=== PATIENT | female | born 1985 | race Two or more races ===

== ENCOUNTER → 2023-05-10 | Outpatient (CLI) | payer BC | END | disposition home or self-care (01) | LOC: LAB 08:52 | PROVIDERS: ATTEND Obstetrics & Gynecology | DX: O99.810 Abnormal glucose complicating pregnancy (principal); Z3A.00 Weeks of gestation of pregnancy not specified | CPT/HCPCS: 82951 ==

== ENCOUNTER 2023-08-21 07:53 | Observation (INO) | payer BC ==
[~2023-08-21] VITALS: Ht 172.7 cm; Wt 127.9 kg
== END 2023-08-21 09:10 | disposition home or self-care (01) ==
LOC: LDRP 07:53 → UNDOADMOB 07:53 → LDRP 08:04 → UNDODISOB 09:10
PROVIDERS: ADMIT Obstetrics & Gynecology; ATTEND Obstetrics & Gynecology
DX: O24.419 Gestational diabetes mellitus in pregnancy, unspecified control (principal); Z3A.33 33 weeks gestation of pregnancy; Z79.899 Other long term (current) drug therapy
CPT/HCPCS: 59025; 76818; 81002; 82948; 82962; 94760; G0378

== ENCOUNTER 2023-08-28 08:24 | Observation (INO) | payer BC | END 2023-08-28 10:30 | disposition home or self-care (01) | LOC: LDRP 08:24 → UNDOADMOB 08:24 → LDRP 08:44 → UNDODISOB 10:30 | PROVIDERS: ADMIT Obstetrics & Gynecology; ATTEND Obstetrics & Gynecology | DX: O24.410 Gestational diabetes mellitus in pregnancy, diet controlled (principal); Z3A.34 34 weeks gestation of pregnancy | CPT/HCPCS: 59025; 76818; 81002; 82948; 94760; G0378 ==

== ENCOUNTER 2023-09-03 08:12 | Observation (INO) | payer BC ==
[2023-09-03] MEDS ORDERED: PREN-96 PO (10:23)
== END 2023-09-03 10:56 | disposition home or self-care (01) ==
LOC: LDRP 08:25 → UNDOADMOB 08:25 → LDRP 08:43 → UNDODISOB 10:56
PROVIDERS: ADMIT Obstetrics & Gynecology; ATTEND Obstetrics & Gynecology
DX: O24.419 Gestational diabetes mellitus in pregnancy, unspecified control (principal); O99.283 Endocrine, nutritional and metabolic diseases complicating pregnancy, third trimester; E03.9 Hypothyroidism, unspecified; Z3A.34 34 weeks gestation of pregnancy
CPT/HCPCS: 59025; 76818; 81002; 82948; G0378

== ENCOUNTER → 2023-09-10 | Outpatient (CLI) | payer BC ==
[~2023-09-10] MED LIST: CEPH250C PO; PREN-96 PO
[2023-09-10 07:23] LABS: Basophils # (auto) 0 10 ^3/uL (0-0.2); Basophils % (auto) 0.3 % (0.0-2.0); Eosinophils # (auto) 0.2 10 ^3/uL (0-0.8); Eosinophils % (auto) 2.1 % (0.0-7.0); Hematocrit 35.9 % (36.0-46.0); Lymphocytes # (auto) 2.3 10 ^3/uL (0.4-5.4); Lymphocytes % (auto) 24.4 % (10.0-50.0); Mean Corpuscular Hemoglobin 27.4 pg (28.0-32.0); Mean Corpuscular Hgb Conc. 33.5 g/dL (32.0-36.0); Mean Corpuscular Volume 81.9 fL (80.0-100.0); Monocytes # (auto) 0.6 10 ^3/uL (0-1.3); Monocytes % (auto) 6.7 % (0.0-12.0); Neutrophils # (auto) 6.2 10 ^3/uL (1.6-8.6); Neutrophils % (auto) 66.5 % (37.0-80.0); Nucleated Red Blood Cells % 0.1 %; Red Blood Cells 4.39 10^6/uL (4.0-5.20); Red Cell Distribution Width 15.3 % (11.8-14.3); White Blood Cell 9.3 10^3/uL (4.4-10.8)
[2023-09-11 07:07] LABS: RPR Non Reactive (Non Reactive)
[2023-09-11 22:06] LABS: Chlamydia Trachomatis, NAA Negative (Negative); Neisseria gonorrhoeae, NAA Negative (Negative)
== END | disposition home or self-care (01) ==
LOC: LAB 07:12
PROVIDERS: ATTEND Obstetrics & Gynecology
DX: Z34.80 Encounter for supervision of other normal pregnancy, unspecified trimester (principal); Z3A.00 Weeks of gestation of pregnancy not specified
CPT/HCPCS: 36415; 83036; 85025; 86592

== ENCOUNTER 2023-09-11 08:33 | Observation (INO) | payer BC ==
[~2023-09-11 08:33] MED LIST changes: -CEPH250C PO; -FURO1TAB33 PO; -HYDR-4902 PO; -IBUP-1455 PO; -LEVO25TA6 PO; -POTA20IN4 PO
[2023-09-11] MEDS ORDERED: CEPH250C PO ×2 (10:02)
== END 2023-09-11 10:11 | disposition home or self-care (01) ==
LOC: UNDOADMOB 08:33 → LDRP 08:33
PROVIDERS: ADMIT Obstetrics & Gynecology; ATTEND Obstetrics & Gynecology
DX: O24.419 Gestational diabetes mellitus in pregnancy, unspecified control (principal); Z3A.36 36 weeks gestation of pregnancy
CPT/HCPCS: 59025; 76818; 81002; 82948; 82962; 94760; G0378

== ENCOUNTER → 2023-09-11 | Outpatient (CLI) | payer BC ==
[~2023-09-11] VITALS: Ht 172.7 cm; Wt 121.6 kg
[~2023-09-11] MED LIST changes: +FURO1TAB33 PO; +HYDR-4902 PO; +IBUP-1455 PO; +LEVO25TA6 PO; +POTA20IN4 PO
== END | disposition home or self-care (01) ==
LOC: LAB 14:50
PROVIDERS: ATTEND Obstetrics & Gynecology
DX: Z34.03 Encounter for supervision of normal first pregnancy, third trimester (principal); Z3A.35 35 weeks gestation of pregnancy
CPT/HCPCS: 87081

== ENCOUNTER 2023-09-18 08:30 | Observation (INO) | payer BC ==
[~2023-09-18] VITALS: Ht 172.7 cm; Wt 130.6 kg
[~2023-09-18 08:30] MED LIST changes: +CEPH250C PO
== END 2023-09-18 09:53 | disposition home or self-care (01) ==
LOC: LDRP 08:30 → UNDOADMOB 08:30 → LDRP 08:46
PROVIDERS: ADMIT Obstetrics & Gynecology; ATTEND Obstetrics & Gynecology
DX: O24.419 Gestational diabetes mellitus in pregnancy, unspecified control (principal); Z3A.37 37 weeks gestation of pregnancy
CPT/HCPCS: 59025; 76818; 81002; 82948; 82962; 94760; G0378

== ENCOUNTER 2023-09-25 09:00 | Observation (INO) | payer BC ==
[~2023-09-25] VITALS: Ht 172.7 cm; Wt 131.5 kg
[~2023-09-25 09:00] MED LIST changes: -CEPH250C PO
== END 2023-09-25 11:19 | disposition home or self-care (01) ==
LOC: UNDOADMOB 09:00 → LDRP 09:00 → UNDODISOB 11:19
PROVIDERS: ADMIT Obstetrics & Gynecology; ATTEND Obstetrics & Gynecology
DX: O24.419 Gestational diabetes mellitus in pregnancy, unspecified control (principal); Z3A.38 38 weeks gestation of pregnancy
CPT/HCPCS: 59025; 76818; 81002; 82948; 82962; 94760; G0378

== ENCOUNTER 2023-09-27 08:59 | Observation (INO) | payer BC ==
[2023-09-27] MEDS ORDERED: LEVO25TA6 PO (15:02)
== END 2023-09-27 17:00 | disposition home or self-care (01) ==
LOC: LDRP 14:34 → UNDOADMOB 14:34 → LDRP 14:39
PROVIDERS: ADMIT Obstetrics & Gynecology; ATTEND Obstetrics & Gynecology
DX: O24.419 Gestational diabetes mellitus in pregnancy, unspecified control (principal); O34.63 Maternal care for abnormality of vagina, third trimester; N89.8 Other specified noninflammatory disorders of vagina; Z3A.38 38 weeks gestation of pregnancy
CPT/HCPCS: 59025; 76818; 81002; 82948; 82962; 94760; G0378

== ENCOUNTER 2023-10-03 20:56 | Inpatient (IN) | payer BC ==
[~2023-10-03] VITALS: Ht 170.2 cm; Wt 99.8 kg
[~2023-10-03 20:56] MED LIST changes: +LEVO25TA6 PO
[2023-10-03] MEDS ORDERED: LIDOCAINE 2%HCL (LOCAL ANESTH.) INJ 20ML MDV IJ PRN ×2 (21:15→22:00)
[2023-10-03] MEDS ORDERED: BUTORPHANOL TARTRATE 2 MG/1 ML VIAL IV PRN ×2 (21:15)
[2023-10-03] MEDS: miSOPROStol 50 MCG per PRE-CUT 1/2 TAB PO PRN (22:06)
[2023-10-03 22:15] LABS: Urine Bacteria FEW /hpf (None Seen); Urine Blood 1+ /uL (Negative); Urine Clarity Turbid (Clear); Urine Color Yellow (Yellow); Urine Mucus FEW (None Seen); Urine Protein, UAD TRACE (Negative); Urine Specific Gravity 1.027 (1.001-1.035); Urine Urobilinogen Normal (Negative); Urine WBC 5 /hpf (0 - 5)
[2023-10-03] MEDS: LACTATED RINGER'S 1,000 ML IV SCH (22:26)
[2023-10-03 22:31] LABS: Amphetamine Screen, Urine Neg (NEGATIVE); Barbiturate Scree,Urine Neg (NEGATIVE); Benzodiazephine Screen, Urine Neg (NEGATIVE); Cannabinoid Screen, Urine Neg (NEGATIVE); Opiate Scree,Urine Neg (NEGATIVE); Phencyclidine Screen, Urine Neg (NEGATIVE)
[2023-10-03 22:33] LABS: Albumin 3.4 g/dL (3.2-4.8); Alkaline Phosphatase 175 U/L (46-116); Anion Gap 7 (5-15); Aspartate Aminotransferase < 8 U/L (13-40); BUN/Creatinine Ratio 11.9 (10.0-20.0); Bilirubin, Total 0.3 mg/dL (0.2-1.0); Blood Urea Nitrogen 7 mg/dL (9-23); Calcium 9.6 mg/dL (8.5-10.1); Carbon Dioxide 21 mmol/L (20-30); Chloride 109 mmol/L (98-107); Glucose 103 mg/dL (74-106); Potassium 3.6 mmol/L (3.5-5.1); Sodium 137 mmol/L (136-145); Total Protein 5.9 g/dL (5.7-8.2)
[2023-10-03 22:35] LABS: INR 0.88 (0.9-1.15); Partial Thromboplastin Time 24.2 SEC (24.5-34.5); Prothrombin Time 9.4 sec (9.3-11.8)
[2023-10-03 22:52] LABS: Alanine Aminotransferase < 9 U/L (7-40)
[2023-10-03 23:06] LABS: Basophils # (auto) 0 10 ^3/uL (0-0.2); Basophils % (auto) 0.3 % (0.0-2.0); Eosinophils # (auto) 0.1 10 ^3/uL (0-0.8); Hemoglobin 11.8 g/dL (12.2-16.2); Monocytes # (auto) 0.6 10 ^3/uL (0-1.3); Monocytes % (auto) 6.2 % (0.0-12.0); Red Cell Distribution Width 15.6 % (11.8-14.3)
[2023-10-03 23:09] LABS: Eosinophils % (auto) 1.5 % (0.0-7.0); Hematocrit 35.7 % (36.0-46.0); Lymphocytes % (auto) 19.9 % (10.0-50.0); Mean Corpuscular Hemoglobin 27.3 pg (28.0-32.0); Mean Corpuscular Hgb Conc. 33.1 g/dL (32.0-36.0); Mean Corpuscular Volume 82.7 fL (80.0-100.0); Neutrophils # (auto) 7.1 10 ^3/uL (1.6-8.6); Neutrophils % (auto) 72.1 % (37.0-80.0); Red Blood Cells 4.32 10^6/uL (4.0-5.20); White Blood Cell 9.8 10^3/uL (4.4-10.8)
[2023-10-03 23:49] LABS: Cocaine Screen, Urine Neg (NEGATIVE)
[2023-10-04] MEDS: ACCU-CHEK COMFORT CURVE STRIP VI SCH (02:00)
[2023-10-04] MEDS: LACT. RINGERS/OXYTOCIN 20UNITS 500 ML IV ONE ×2 (03:00→03:30)
[2023-10-04] MEDS: CARBOPROST TROMETHAMINE 250 MCG/1ML VIAL IM ONE (03:00)
[2023-10-04] MEDS ORDERED: miSOPROStol 100 mcg TAB SL PRN (03:00)
[2023-10-04] MEDS ORDERED: miSOPROStol 100 mcg TAB PR PRN (03:00)
[2023-10-04] MEDS ORDERED: METHYLERGONOVINE MALEATE 0.2 MG/ML AMP IM PRN (03:00)
[2023-10-04] MEDS ORDERED: TERBUTALINE SULFATE 1 MG/ML 1ML VIAL SC PRN (03:00)
[2023-10-04] MEDS: LACT. RINGERS/OXYTOCIN 20UNITS 1,000 ML IV SCH (03:41)
[2023-10-04 04:13] LABS: Protein, Urine 23.4 mg/dL (0.0-11.9)
[2023-10-04 04:16] LABS: Creatinine, Urine 167.74 mg/dL (30.0-125.0); Urine Protein/Creatinine Ratio 0.14
[2023-10-04] MEDS ORDERED: NALOXONE HCL 0.4 MG/ML VIAL IV ONE (07:15)
[2023-10-04] MEDS ORDERED: ePHEDrine SULFATE 50 MG/ML AMP IV ONE (07:15)
[2023-10-04] MEDS: fentaNYL CITRATE 100 MCG/2 ML VL IV ONE (08:34)
[2023-10-04] MEDS: ROPIVACAINE HCL 200 ML ONE (08:35)
[2023-10-04] MEDS: FAMOTIDINE (10MG/ML) 2ML VL IV ONE ×2 (08:41→09:41)
[2023-10-04] MEDS: diphenhdrAMINE HCL 50 MG/1 ML VL IV ONE (10:31)
[2023-10-04] MEDS: DIPHENOXYLATE W/ATROPINE 2.5 MG TAB PO SCH (20:00)
[2023-10-04] MEDS: WITCH HAZEL-GLYCERIN PAD TOP PRN (20:42)
[2023-10-04] MEDS: DERMOPLAST 60ML BOTTLE TOP PRN (20:42)
[2023-10-04] MEDS: PHISODERM TOP SOLN 240ML BTL TOP PRN (20:42)
[2023-10-04] MEDS: ONDANSETRON HCL 4 MG/2 ML VIAL IV PRN (22:20)
[2023-10-04] MEDS ORDERED: ceFAZolin 2 GM/D5W50ml 50 ML IV ONE (23:00)
[2023-10-04] MEDS: ceFAZolin 2 GM/D5W50ml 50 ML IV ONE (23:19)
[2023-10-04] MEDS: ceFAZolin 1GM VL ONE (23:19)
[2023-10-04] MEDS: LACTATED RINGER'S 1,000 ML IV ONE (23:20)
[2023-10-04] MEDS: LIDOCAINE 2%HCL (LOCAL ANESTH.) INJ 10ml MDV ONE (23:34)
[2023-10-04] MEDS: LIDOCAINE HCL 2 %PF INJ 10ML AMP IJ ONE (23:40)
[2023-10-04] MEDS ORDERED: oxyTOCIN 10 UNIT/ML 10ML VIAL ONE (23:45)
[2023-10-04] MEDS ORDERED: fentaNYL CITRATE 100 MCG/2 ML VL ONE (23:45)
[2023-10-04] MEDS ORDERED: MORPHINE SULF PF 5 MG/10 ML VIAL ONE (23:45)
[2023-10-04] MEDS ORDERED: KETOROLAC TROMETH 30 MG/ML 1ML VIAL ONE (23:45)
[2023-10-04] MEDS ORDERED: ePHEDrine SULFATE 50 MG/ML AMP ONE (23:45)
[2023-10-04] MEDS ORDERED: ONDANSETRON HCL 4 MG/2 ML VIAL ONE (23:46)
[2023-10-04] MEDS ORDERED: GLYCOPYRROLATE 0.2 MG/ML 1ML VIAL ONE (23:46)
[2023-10-05] VITALS (21 sets, daily range): BP systolic 101–143; BP diastolic 56–79; PULSE 73–103; RESP 10–18; TEMP 97.7–98.7; O2SAT 92–100
[2023-10-05] MEDS: METHYLERGONOVINE MALEATE 0.2 MG/ML AMP IM ONE (00:20)
[2023-10-05] MEDS ORDERED: HYDROmorphone HCL 2 MG/ML VL/or syr IV PRN (01:00)
[2023-10-05] MEDS ORDERED: MORPHINE SULFATE 4 MG/ML SYR/VIAL IV PRN (01:00)
[2023-10-05] MEDS ORDERED: ePHEDrine SULFATE 50 MG/ML AMP IV PRN (01:00)
[2023-10-05] MEDS: LACT. RINGERS/OXYTOCIN 20UNITS 1,000 ML IV ONE (01:00)
[2023-10-05] MEDS ORDERED: ONDANSETRON HCL 4 MG/2 ML VIAL IV PRN ×2 (01:00→01:15)
[2023-10-05] MEDS ORDERED: IBUPROFEN 600 MG TAB PO PRN (01:00)
[2023-10-05] MEDS: OXYTOCIN 10UNIT/ML 1ML VIAL ONE (01:01)
[2023-10-05] MEDS ORDERED: DexAMETHasone SOD PHOS 10MG/1ML VIAL INJ IV PRN (01:15)
[2023-10-05] MEDS ORDERED: diphenhdrAMINE HCL 50 MG/1 ML VL IV PRN (01:15)
[2023-10-05] MEDS ORDERED: NALOXONE HCL 0.4 MG/ML VIAL IV PRN (01:15)
[2023-10-05] MEDS ORDERED: KETOROLAC TROMETH 30 MG/ML 1ML VIAL IV PRN (01:15)
[2023-10-05] MEDS: FAMOTIDINE (10MG/ML) 2ML VL IV ONE (01:30)
[2023-10-05] MEDS: ACETAMINOPHEN IV 1000 MG/100ML (10MG/ML) IV PRN (05:51)
[2023-10-05 07:28] LABS: Basophils # (auto) 0 10 ^3/uL (0-0.2); Eosinophils # (auto) 0.1 10 ^3/uL (0-0.8); Red Cell Distribution Width 15.7 % (11.8-14.3)
[2023-10-05 07:30] LABS: Basophils % (auto) 0.2 % (0.0-2.0); Eosinophils % (auto) 0.5 % (0.0-7.0); Hematocrit 33.1 % (36.0-46.0); Hemoglobin 10.8 g/dL (12.2-16.2); Lymphocytes # (auto) 1.7 10 ^3/uL (0.4-5.4); Mean Corpuscular Hemoglobin 26.7 pg (28.0-32.0); Mean Corpuscular Hgb Conc. 32.7 g/dL (32.0-36.0); Mean Corpuscular Volume 81.8 fL (80.0-100.0); Monocytes # (auto) 0.6 10 ^3/uL (0-1.3); Monocytes % (auto) 5.4 % (0.0-12.0); Neutrophils % (auto) 78.9 % (37.0-80.0); Nucleated Red Blood Cells % 0.1 %; Red Blood Cells 4.04 10^6/uL (4.0-5.20); White Blood Cell 11.4 10^3/uL (4.4-10.8)
[2023-10-05] MEDS: LEVOTHYROXINE SODIUM 25 MCG TAB PO SCH (09:00)
[2023-10-05] MEDS: ceFAZolin 1GM/50ML 50 ML IV SCH (09:00)
[2023-10-05] MEDS: KETOROLAC TROMETH 30 MG/ML 1ML VIAL IV PRN (15:43)
[2023-10-06] VITALS (7 sets, daily range): BP systolic 103–146; BP diastolic 55–78; PULSE 76–96; RESP 16–18; TEMP 97.7–98.9; O2SAT 96–100
[2023-10-06] MEDS: SIMETHICONE 80 MG CHEWABLE TABLET PO PRN (00:29)
[2023-10-06] MEDS: DOCUSATE SOD 100 MG CAP PO SCH (00:29)
[2023-10-06] MEDS: HYDROcodone-ACET 5/325MG TAB PO PRN ×2 (00:30→19:52)
[2023-10-06] MEDS: ceFAZolin 1GM/50ML 50 ML IV ONE (02:30)
[2023-10-06] MEDS ORDERED: IBUPROFEN 800 MG TAB PO PRN (05:15)
[2023-10-06] MEDS: IBUPROFEN 800 MG TAB PO PRN (05:27)
[2023-10-06 07:06] LABS: Basophils # (auto) 0 10 ^3/uL (0-0.2); Basophils % (auto) 0.3 % (0.0-2.0); Eosinophils # (auto) 0.1 10 ^3/uL (0-0.8); Lymphocytes # (auto) 1.8 10 ^3/uL (0.4-5.4); Monocytes # (auto) 0.6 10 ^3/uL (0-1.3)
[2023-10-06 07:10] LABS: Eosinophils % (auto) 1.5 % (0.0-7.0); Hematocrit 29.9 % (36.0-46.0); Hemoglobin 9.9 g/dL (12.2-16.2); Lymphocytes % (auto) 18.6 % (10.0-50.0); Mean Corpuscular Hemoglobin 27.3 pg (28.0-32.0); Mean Corpuscular Volume 82.7 fL (80.0-100.0); Monocytes % (auto) 6.5 % (0.0-12.0); Neutrophils # (auto) 7.2 10 ^3/uL (1.6-8.6); Neutrophils % (auto) 73.1 % (37.0-80.0); Red Blood Cells 3.61 10^6/uL (4.0-5.20); Red Cell Distribution Width 15.8 % (11.8-14.3); White Blood Cell 9.8 10^3/uL (4.4-10.8)
[2023-10-06] MEDS: DOCUSATE CALCIUM 240 MG CAP PO PRN (14:09)
[2023-10-06] MEDS ORDERED: IBUP-1455 PO (20:15)
[2023-10-06] MEDS ORDERED: HYDR-4902 PO (20:15)
== END 2023-10-06 22:35 | disposition home or self-care (01) | DRG 787 ==
LOC: LDRP 20:56
PROVIDERS: ADMIT Obstetrics & Gynecology; ATTEND Obstetrics & Gynecology
PROC: 10D00Z1 Extraction of Products of Conception, Low, Open Approach (ICD-10-PCS; principal; 2023-10-05)
DX: O24.420 Gestational diabetes mellitus in childbirth, diet controlled (principal); O72.1 Other immediate postpartum hemorrhage; O69.81X0 Labor and delivery complicated by cord around neck, without compression, not applicable or unspecified; O61.9 Failed induction of labor, unspecified; Z3A.39 39 weeks gestation of pregnancy; Z37.0 Single live birth; O33.9 Maternal care for disproportion, unspecified; O99.214 Obesity complicating childbirth; E66.01 Morbid (severe) obesity due to excess calories; O36.63X0 Maternal care for excessive fetal growth, third trimester, not applicable or unspecified
CPT/HCPCS: 36415; 59025; 62282; 80053; 80307; 81001; 81002; 82570; 82948; 82962; 84156; 85025; 85610; 85730; 86803; 86850; 86900; 86901; 94760; 94762; 96360; 96361; 96365; 96366; 96374; 96375; G0378; J0131; J0690; J1885; J2001; J2405; J2590; J3490

== ENCOUNTER 2024-04-23 02:10 | Emergency (ER) | payer BC ==
[~2024-04-23] VITALS: Ht 172.7 cm; Wt 113.6 kg
[~2024-04-23 02:10] MED LIST changes: +FURO1TAB33 PO; +HYDR-4902 PO; +IBUP-1455 PO; +POTA20IN4 PO
[2024-04-23] MEDS ORDERED: GUAI1SOL3 PO (02:35)
--- NOTE | 2024-04-23 02:36 | ED.PDOC ---
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 No chest pain, shortness a breath, nausea, vomiting or edema. 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 History Family History Family History: Reviewed,noncontributory to illness Social History Smoker: Non-Smoker Alcohol: Denies ETOH Use Drugs: Denies Drug Use Lives In: Home All Other Systems: Reviewed and Negative (Comprehensive systems review obtained and negative except for what is stated in the HPI.) Physical Exam General Appearance: No Apparent Distress HEENT: Other (Pupils symmetric, no facial asymmetry, moist mucous membranes) Neck: Full Range of Motion, Normal Inspection Respiratory: No Accessory Muscle Use, No Respiratory Distress Cardiovascular: No Edema, No JVD, Regular Rate/Rhythm Breast Exam: Deferred Gastrointestinal: NOT DONE Genitalia: Deferred Pelvic: Deferred Rectal: Deferred Extremities: Normal inspection, Normal range of motion, No pedal edema Neurologic: Alert (Oriented x4), Normal Affect, Normal Mood, Other (Ambulatory without difficulty. No gross focal deficit.) Cerebellar Function: NOT DONE Reflexes: NOT DONE Skin: Dry, Normal Color, Warm Lymphatic: NOT DONE Was a procedure done? Was a procedure done?: No Sedation Sedation?: No Differential Dx Differential Diagnosis: Bronchitis, CHF, COPD, Pneumonia, URI X-Ray, Labs, Meds, VS Vital Signs Date Time Temp Pulse Resp B/P (MAP) Pulse Ox O2 Delivery O2 Flow Rate FiO2 04/23/24 03:57 81 18 139/101 (114) 98 04/23/24 02:27 97.6 81 18 139/101 (114) 98 Lab Test 04/23/24 02:22 Range/Units Influenza Type A Antigen Positive Negative Influenza Type B Antigen Negative Negative SARS-CoV-2 Antigen (Rapid) Negative NEGATIVE X-Ray, Labs, Meds, VS Comment 39-year-old female with no significant past medical history complaining of cough and congestion. Vitals unremarkable Exam unremarkable Influenza A positive, COVID negative Patient well-appearing and in no respiratory distress. Oxygen saturation normal on room air. Patient requesting a prescription for cough suppressant, which I will prescribe. Patient appears stable for outpatient treatment and follow-up with her primary physician. Rx guaifenesin/codeine, Tamiflu Time of 1ST Reevaluation: 02:31 Reevaluation 1ST: Unchanged Patient Education/Counseling: Diagnosis, Treatment, Need For Follow Up Family Education/Counseling: No Family Present Departure 1 Departure Time of Disposition: 02:31 Impression: Primary Impression: Acute cough Additional Impression: Influenza A Disposition: HOME / SELF CARE / HOMELESS Condition: Stable Additional Instructions: Your lab tests showed you have influenza A. Your COVID test was negative. Follow-up with your primary doctor in 1-2 days. I have prescribed cough medication and the antiviral medication for the flu. e-Prescriptions Oseltamivir Phosphate (Tamiflu) 75 Mg Cap 1 CAP PO BID for 5 Days, #10 CAP Prov: ISAMAR KUMAR MD 04/23/24 Guaifenesin-Codeine (Codeine/Guaifenesin 100-10 mg/5Ml) 1 Lita Lita 5-10 ML PO Q4HP PRN, #120 ML Prov: ISAMAR KUMAR MD 04/23/24 Discharged With: Self Critical Care Note Critical Care Time?: No Stability Stability form required: No Heart Score Heart Score: Heart Score Response (Comments) Value History N/A 0 EKG N/A 0 Age N/A 0 Risk Factors N/A 0 Troponin N/A 0 Total 0 ISAMAR KUMAR MD Apr 23, 2024 02:36
[2024-04-23 03:21] LABS: COVID19 ANTIGEN SOFIA FIA NEGATIVE (NEGATIVE)
[2024-04-23 03:26] LABS: Rapid Influenza A Positive (Negative); Rapid Influenza B Negative (Negative)
[2024-04-23] MEDS ORDERED: OSEL75CA5 PO (03:28)
[2024-04-23 03:57] VITALS: BP 139/101; PULSE 81; RESP 18; O2SAT 98
== END 2024-04-23 03:51 | disposition home or self-care (01) ==
LOC: ER 02:10
DX: J10.1 Influenza due to other identified influenza virus with other respiratory manifestations (principal); R05.1 Acute cough; Z98.890 Other specified postprocedural states; Z20.822 Contact with and (suspected) exposure to COVID-19
CPT/HCPCS: 36415; 87426; 87804